=== PATIENT | female | born 1955 | race Caucasian/White ===

== ENCOUNTER → 2016-11-26 | Outpatient (CLI) | payer MEDICARE, BC ==
[~2016-11-26] MED LIST: ALBU8.5H3 INH; ALPR0.5T6 PO; AMOX-291 PO; ARNICA TP; BUPR150T6 PO; ESTR1TAB15 PO; GABA300C10 PO; LEVO175T5 PO; LOPE2TAB28 PO; METF500T4 PO; METO25TA35 PO; MONT10TA9 PO; OMEP-110 PO; QUET100T PO; SIME125T8 PO; SIMV40TA3 PO; TRIA15CR3 TP; VENL75TA PO
[2016-11-26 15:04] LABS: ASPARTATE AMINO TRANSFERASE 13 U/L (15-37); BLOOD UREA NITROGEN 20 mg/dL (7-18)
== END | disposition home or self-care (01) ==
LOC: STAR 13:13
PROVIDERS: ATTEND Orthopaedic Surgery
DX: Z01.818 Encounter for other preprocedural examination (principal); M12.872 Other specific arthropathies, not elsewhere classified, left ankle and foot; M25.372 Other instability, left ankle; I45.10 Unspecified right bundle-branch block
CPT/HCPCS: 36415; 80053; 93005